=== PATIENT | female | born 1985 | race Caucasian/White ===

== ENCOUNTER 2019-04-22 16:36 | Emergency (ER) | payer SELFPAY ==
[~2019-04-22] VITALS: Ht 165.1 cm; Wt 59.0 kg
[2019-04-22 16:41] VITALS: BP 156/91
[2019-04-22 17:27] VITALS: BP 130/86
== END 2019-04-22 17:28 | disposition home or self-care (01) ==
LOC: MED 16:36
DX: F41.9 Anxiety disorder, unspecified (principal); R00.2 Palpitations; F32.9 Major depressive disorder, single episode, unspecified; F12.10 Cannabis abuse, uncomplicated
CPT/HCPCS: 99281